=== PATIENT | male | born 1960 | race Caucasian/White ===

== ENCOUNTER 2016-12-15 17:30 | Emergency (ER) | payer OTHER ==
[~2016-12-15] VITALS: Ht 182.9 cm; Wt 81.6 kg
[2016-12-15 17:36] VITALS: BP 128/78; PULSE 63; RESP 18; TEMP 98.4; O2SAT 98
--- NOTE | 2016-12-15 17:36 | NUR ---
Patient to ER bed 8 to gown for evaluation. Side rails up. Report given to Alina KULKARNI.
--- NOTE | 2016-12-15 17:40 | NUR ---
Patient stable, states woke up this morning with right face swelling and tootache, also states that he flossed yesterday and peice of right upper molar fell off. No bleeding/drainage noted at this time. Patient denies swallowing any of tooth. Right cheek appears swollen and red. Right upper molar appears broken. No other complaints/injuries per patient or noted.
--- NOTE | 2016-12-15 17:41 | NUR ---
ER Dr. Snider at bedside examining patient.
[2016-12-15 18:20] VITALS: BP 122/80; PULSE 66; RESP 18; TEMP 98.2; O2SAT 99
--- NOTE | 2016-12-15 18:20 | NUR ---
Patient given written and verbal discharge instructions and verbalizes understanding. ER MD discussed with patient the results and treatment provided. Patient in stable condition. ID arm band removed. Rx of promethazine, augmentin and tylenol given. Patient educated on pain management and to follow up with PMD within 2 days and dentist tomorrow. Opportunity for questions provided and answered.
== END 2016-12-15 18:20 | disposition home or self-care (01) ==
LOC: SED 17:30
DX: K02.9 Dental caries, unspecified (principal); Z88.6 Allergy status to analgesic agent; Z88.5 Allergy status to narcotic agent
CPT/HCPCS: 99283